=== PATIENT | male | born 1960 | race Caucasian/White ===

== ENCOUNTER 2019-11-25 05:19 | Day surgery (SDC) | payer BC ==
[2019-11-21 16:00] VITALS: BMI 37.5
[2019-11-25 09:39] VITALS: TEMP 97.5
[2019-11-25 09:45] VITALS: PULSE 75
[2019-11-25 10:25] VITALS: BP 129/82
--- NOTE | 2019-11-27 18:14 | PATH ---
Surgical Pathology Report Patient Name: LEI RODRÍGUEZ [facility]. Rec. #: [id number] /Age/Gender: 1960 (Age: 59) / M Account: [id number] Location: U-ENDOSCOPY Taken: 11/25/2019 Received: 11/25/2019 Reported: 11/27/2019 Physicians: Ravi Rader M.D. Specimen(s) Received A: RIGHT COLON POLYP B: CECAL POLYP #1 AND #2 C: PROXIMAL TRANSVERSE COLON POLYP D: RECTAL POLYP Clinical History Personal and family history of colon polyps Postoperative diagnosis: Cecal right colon, transverse colon polyp, diverticulosis Final Diagnosis A. RIGHT COLON POLYP, POLYPECTOMY: TUBULAR ADENOMA. B. CECAL POLYP #1 AND #2, POLYPECTOMY: FRAGMENTS OF TUBULAR ADENOMA. C. PROXIMAL TRANSVERSE COLON POLYP, POLYPECTOMY: TUBULAR ADENOMA. D. RECTAL POLYP, POLYPECTOMY: HYPERPLASTIC POLYP. Electronically Signed Rachael Torre M.D. Gross Description A. Received in formalin, labeled "right colon polyp" are 2 quiros, irregular portions of soft tissue measuring 0.3 and 0.4 cm. in greatest dimension. The specimens are submitted in toto in one cassette. B. Received in formalin labeled "cecal polyp," is a 0.8 x 0.6 x 0.2 cm aggregate of quiros soft tissue fragments. The formalin is filtered and the specimen is entirely submitted in one cassette. C. Received in formalin, labeled "proximal transverse colon polyp" are 2 quiros, irregular portions of soft tissue measuring 0.2 and 0.4 cm. in greatest dimension. The specimens are submitted in toto in one cassette. D. Received in formalin, labeled "rectal polyp" are 2 quiros, irregular portions of soft tissue measuring 0.2 and 0.3 cm. in greatest dimension. The specimens are submitted in toto in one cassette. DL/11/25/2019 saudi11/25/2019
== END 2019-11-25 10:10 | disposition home or self-care (01) ==
LOC: JASU-ENDO 05:19
PROVIDERS: ATTEND Internal Medicine Gastroenterology
PROC: 0DBH8ZX Excision of Cecum, Via Natural or Artificial Opening Endoscopic, Diagnostic (ICD-10-PCS; 2019-11-25)
PROC: 0DBP8ZX Excision of Rectum, Via Natural or Artificial Opening Endoscopic, Diagnostic (ICD-10-PCS; 2019-11-25)
PROC: 0DBL8ZX Excision of Transverse Colon, Via Natural or Artificial Opening Endoscopic, Diagnostic (ICD-10-PCS; 2019-11-25)
PROC: 0DBN8ZX Excision of Sigmoid Colon, Via Natural or Artificial Opening Endoscopic, Diagnostic (ICD-10-PCS; 2019-11-25)
PROC: 0DBK8ZX Excision of Ascending Colon, Via Natural or Artificial Opening Endoscopic, Diagnostic (ICD-10-PCS; principal; 2019-11-25 09:00)
DX: Z12.11 Encounter for screening for malignant neoplasm of colon (principal); Z86.010 Personal history of colon polyps; D12.2 Benign neoplasm of ascending colon; D12.0 Benign neoplasm of cecum; D12.3 Benign neoplasm of transverse colon; K62.1 Rectal polyp; K64.8 Other hemorrhoids; K57.30 Diverticulosis of large intestine without perforation or abscess without bleeding
CPT/HCPCS: 82962; 88305-TC

== ENCOUNTER 2023-02-28 04:53 | Day surgery (SDC) | payer OTHER ==
[2023-02-23 13:53] VITALS: BMI 24.2
[2023-02-28 11:17] VITALS: PULSE 74; RESP 12
[2023-02-28 11:18] VITALS: BP 126/84; TEMP 97.7
== END 2023-02-28 11:16 | disposition home or self-care (01) ==
LOC: JASU-ENDO 04:53
PROVIDERS: ATTEND Internal Medicine Gastroenterology
PROC: 0DBL8ZX Excision of Transverse Colon, Via Natural or Artificial Opening Endoscopic, Diagnostic (ICD-10-PCS; 2023-02-28)
PROC: 0DBP8ZX Excision of Rectum, Via Natural or Artificial Opening Endoscopic, Diagnostic (ICD-10-PCS; 2023-02-28)
PROC: 0DBH8ZX Excision of Cecum, Via Natural or Artificial Opening Endoscopic, Diagnostic (ICD-10-PCS; 2023-02-28)
PROC: 0DB98ZX Excision of Duodenum, Via Natural or Artificial Opening Endoscopic, Diagnostic (ICD-10-PCS; 2023-02-28)
PROC: 0DB78ZX Excision of Stomach, Pylorus, Via Natural or Artificial Opening Endoscopic, Diagnostic (ICD-10-PCS; 2023-02-28)
PROC: 0DB68ZX Excision of Stomach, Via Natural or Artificial Opening Endoscopic, Diagnostic (ICD-10-PCS; 2023-02-28)
PROC: 0DB28ZX Excision of Middle Esophagus, Via Natural or Artificial Opening Endoscopic, Diagnostic (ICD-10-PCS; 2023-02-28)
PROC: 0DB48ZX Excision of Esophagogastric Junction, Via Natural or Artificial Opening Endoscopic, Diagnostic (ICD-10-PCS; 2023-02-28)
PROC: 0DBK8ZX Excision of Ascending Colon, Via Natural or Artificial Opening Endoscopic, Diagnostic (ICD-10-PCS; principal; 2023-02-28 11:00)
DX: Z12.11 Encounter for screening for malignant neoplasm of colon (principal); D12.3 Benign neoplasm of transverse colon; D12.8 Benign neoplasm of rectum; K63.5 Polyp of colon; K21.00 Gastro-esophageal reflux disease with esophagitis, without bleeding; K44.9 Diaphragmatic hernia without obstruction or gangrene; K29.50 Unspecified chronic gastritis without bleeding; K57.30 Diverticulosis of large intestine without perforation or abscess without bleeding; K64.8 Other hemorrhoids; Z86.010 Personal history of colon polyps; Z83.719 Family history of colon polyps, unspecified
CPT/HCPCS: 88305-TC; 88342-TC